=== PATIENT | female | born 1985 | race Caucasian/White ===

== ENCOUNTER 2017-07-12 22:37 | Emergency (ER) | payer SELFPAY | END 2017-07-12 22:57 | disposition home or self-care (01) | LOC: ERS 22:37 | DX: K08.89 Other specified disorders of teeth and supporting structures (principal); F41.9 Anxiety disorder, unspecified; F32.9 Major depressive disorder, single episode, unspecified | CPT/HCPCS: 99283 ==

== ENCOUNTER 2017-07-13 17:10 | Emergency (ER) | payer SELFPAY ==
[2017-07-13] MEDS ORDERED: Acetaminophen/Codeine 30-300mg Tablet ONE (17:42)
== END 2017-07-13 18:39 | disposition home or self-care (01) ==
LOC: ERS 17:10
DX: K08.89 Other specified disorders of teeth and supporting structures (principal); I10 Essential (primary) hypertension; F41.9 Anxiety disorder, unspecified; Z87.891 Personal history of nicotine dependence; Z79.899 Other long term (current) drug therapy
CPT/HCPCS: 99283

== ENCOUNTER 2018-02-15 19:23 | Emergency (ER) | payer SELFPAY ==
[2018-02-15] MEDS ORDERED: Ketorolac Tromethamine 30 MG/ML VIAL ONE (19:54)
[2018-02-15] MEDS ORDERED: diphenhydrAMINE 50 MG/ML VIAL ONE (19:54)
[2018-02-15] MEDS ORDERED: Metoclopramide HCl 10 MG/2 ML VIAL ONE (19:54)
[2018-02-15] MEDS ORDERED: Oxymetazoline HCl 0.05% ( 15 ML ) ONE (20:45)
== END 2018-02-15 20:55 | disposition home or self-care (01) ==
LOC: ERS 19:23
DX: J32.9 Chronic sinusitis, unspecified (principal); F41.9 Anxiety disorder, unspecified; F32.9 Major depressive disorder, single episode, unspecified; Z87.891 Personal history of nicotine dependence
CPT/HCPCS: 96365; 96375; J1200; J1885; J2765

== ENCOUNTER 2018-05-26 19:27 | Emergency (ER) | payer SELFPAY ==
[2018-05-26] MEDS ORDERED: Ketorolac Tromethamine 60 MG/2 ML VIAL ONE (20:40)
--- NOTE | 2018-05-26 20:40 | RAD ---
FXR Clavicle Lt 2 V STANDARD: 05/26/2018 8:17 PM CLINICAL INDICATION: Pain COMPARISON: None. FINDINGS: Fracture:No fracture. Arthropathy:None of significance. Incidental findings:None of significance. IMPRESSION: 1. No acute osseous abnormality.
--- NOTE | 2018-05-26 20:43 | RAD ---
FXR Shoulder Lt 3 View STANDARD: 05/26/2018 8:17 PM CLINICAL INDICATION: Pain COMPARISON: None. FINDINGS: Fracture:No fracture. Arthropathy:None of significance. Incidental findings:None of significance. IMPRESSION: 1. No acute osseous abnormality.
== END 2018-05-26 22:28 | disposition home or self-care (01) ==
LOC: ERS 19:27
DX: M25.512 Pain in left shoulder (principal); F41.9 Anxiety disorder, unspecified; Z87.891 Personal history of nicotine dependence
CPT/HCPCS: 96372; J1885

== ENCOUNTER 2018-06-04 07:31 | Outpatient (CLI) | payer OTHER ==
--- NOTE | 2018-06-04 09:23 | RAD ---
Left shoulderarthrogram, under fluoroscopic guidance CLINICAL HISTORY: Chronic left shoulder pain. Recent fall. PROCEDURE: Informed consent was obtained from the patient. Graduate Engineer imaging was performed. The patient's left shoulderwas prepped and draped in a standard sterile fashion. Using fluoroscopic guidance, the left shoulderwas localized. Topical anesthesia with buffered 1% lidocaine was performed. Subsequently , uneventful access into theleft shoulder jointwas performed with a 22-gauge needle, which was confirmed with a small volume of radiopaque contrast. An 7 cc contrast cocktail containing gadolinium , radiopaque contrast, saline, lidocaine and epinephrine was instilled into the left hip joint. Fluoroscopic imaging was acquired and was stored for documentation. The needle was removed. There wer e no procedural complications. Patient tolerated the procedure well. Patient was transferred to MRI Department to undergo MRI arthrogram. Reference separate report for fu rther details. IMPRESSION: Technically successfulleft shoulderarthrogram, under fluoroscopic guidance.
--- NOTE | 2018-06-04 11:10 | MRI ---
MR ARTHROGRAM LEFT SHOULDER: Provided Clinical History: Left shoulder pain. FINDINGS: The components of the rotator cuff appear intact. The long head biceps tendon appears intact and is n ormally located. The glenoid labrum and glenohumeral articular cartilage appear normal. No significant subacromial subdeltoid bursal fluid. No focal concerning regional marrow or muscular signal abnormality apparent. IMPRESSION: No evidence for rotator cuff or glenoid labral tear. POS: TPC
== END 2018-06-04 07:32 | disposition home or self-care (01) ==
LOC: RAD 07:31
PROVIDERS: ATTEND Orthopaedic Surgery
DX: M25.512 Pain in left shoulder (principal)
CPT/HCPCS: 23350

== ENCOUNTER 2018-09-28 13:49 | Emergency (ER) | payer BC ==
[2018-09-28 14:39] LABS: #Basophils 0.1 thou/uL (0.0-0.2); #Eosinphils 0.2 thou/uL (0.0-0.7); #Lymphocytes 2.7 thou/uL (1.20-3.40); #Monocytes 0.5 thou/uL (0.11-0.59); #Neutrophils 7.8 thou/uL (1.40-6.50); %Basophils 0.5 % (0.0-1.0); %Eosinophils 1.5 % (0.0-10.0); %Lymphocytes 24.2 % (21.0-51.0); %Monocytes 4.8 % (0.0-10.0); Hemoglobin 13.4 g/dL (12.0-16.0); Mean Corpuscular HGB CONC 33.6 g/dL (32.0-36.0); Mean Corpuscular Hemoglobin 30.5 pg (27.0-31.0); Mean Corpuscular Volume 90.7 fL (78.0-98.0); Platelet Count 305 thou/uL (130-400); RBC Distribution Width 12.7 % (11.5-14.5); White Blood Cell (WBC) Count 11.3 thou/uL (4.8-10.8)
[2018-09-28 15:16] LABS: ALT (SGPT) 23 U/L (8-55); AST (SGOT) 16 U/L (5-34); Albumin 3.8 g/dL (3.5-5.0); Alkaline Phosphatase 72 U/L (40-150); Anion Gap 13 mmol/L (10-20); BUN (Urea Nitrogen) 9 mg/dL (7.0-18.7); Bilirubin, Total 0.4 mg/dL (0.2-1.2); Calc. Creatinine Clearance 0 mL/min (70-130); Calcium 8.9 mg/dL (7.8-10.44); Carbon Dioxide 24 mmol/L (22-29); Chloride 103 mmol/L (98-107); Estimated GFR-MDRD Greater than 90; Glucose 109 mg/dL (70-105); Potassium 4.1 mmol/L (3.5-5.1); Protein, Total 6.8 g/dL (6.0-8.3); Sodium 136 mmol/L (136-145)
--- NOTE | 2018-09-28 15:19 | ULT ---
EXAM: Pelvic ultrasound HISTORY: Vaginal spotting for 4 weeks COMPARISON: None TECHNIQUE: Multiple grayscale and color Doppler images were obtained in a transabdominal and transvag inal pelvic ultrasound. Spectral analysis of the Doppler waveforms of the ovaries were performed. FINDINGS: UTERUS: There is an intrauterine gestational sac. This contains a yolk sac and pole. [place]-rump length: 0.65 cm which estimates gestational age at 6 weeks 3 days. A heart rate is detected at 120 bpm. A small hypoechoic region adjacent to the gestational sac which could represent a small subchorionic hemorrhage. No free fluid is seen in the pelvis. RIGHT OVARY: Normal flow without focal mass. LEFT OVARY: Normal flow without focal mass. IMPRESSION: 1. Single live intrauterine with estimated age of 6 weeks 3 days. 2. Possible small area of subchorionic hemorrhage
[2018-09-28 16:02] LABS: Bilirubin Small (Negative); Blood, Urine Large (Negative); Glucose, Urine (Dipstick) Negative (Negative); Leukocyte Small (Negative); Nitrite Negative (Negative); Protein, Urine (Dipstick) 30 mg/dL (Neg-Trace); Urobilinogen 0.2 mg/dL (Less than 2)
[2018-09-28 16:05] LABS: Clarity Cloudy (Clear)
[2018-09-28 16:14] LABS: RBC/HPF Greater than 50 HPF (0-3)
[2018-09-28 16:15] LABS: Bacteria/HPF 1+ HPF (None Seen)
== END 2018-09-28 17:19 | disposition home or self-care (01) ==
LOC: ERS 13:49
DX: O20.0 Threatened abortion (principal); O99.341 Other mental disorders complicating pregnancy, first trimester; F41.9 Anxiety disorder, unspecified; Z3A.01 Less than 8 weeks gestation of pregnancy
CPT/HCPCS: 36415; 76856; 80053; 81003; 81015; 84702; 85025; 86850; 86900; 86901; 87086

== ENCOUNTER 2018-10-08 13:08 | Emergency (ER) | payer BC, OTHER ==
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
== END 2018-10-08 14:10 | disposition home or self-care (01) ==
LOC: ERS 13:08
DX: O9A.211 Injury, poisoning and certain other consequences of external causes complicating pregnancy, first trimester (principal); S51.811A Laceration without foreign body of right forearm, initial encounter; S30.1XXA Contusion of abdominal wall, initial encounter; O99.341 Other mental disorders complicating pregnancy, first trimester; F41.9 Anxiety disorder, unspecified; Z3A.09 9 weeks gestation of pregnancy; Y04.8XXA Assault by other bodily force, initial encounter
CPT/HCPCS: 76856

== ENCOUNTER 2018-11-28 09:26 | Observation (INO) | payer MEDICAID, OTHER ==
[2018-11-28 10:18] LABS: #Lymphocytes 1.7 thou/uL (1.20-3.40); #Monocytes 0.4 thou/uL (0.11-0.59); #Neutrophils 11.1 thou/uL (1.40-6.50); %Basophils 0.2 % (0.0-1.0); %Eosinophils 0.2 % (0.0-10.0); %Lymphocytes 12.8 % (21.0-51.0); %Monocytes 3.2 % (0.0-10.0); %Neutrophils 83.6 % (42.0-75.0); Hemoglobin 13.1 g/dL (12.0-16.0); Mean Corpuscular HGB CONC 34.4 g/dL (32.0-36.0); Mean Corpuscular Volume 87.2 fL (78.0-98.0); Mean Platelet Volume 7.9 fL (7.4-10.4); Platelet Count 269 thou/uL (130-400); RBC Distribution Width 12.6 % (11.5-14.5); Red Blood Cell (RBC) Count 4.36 mill/uL (4.20-5.40); White Blood Cell (WBC) Count 13.2 thou/uL (4.8-10.8)
[2018-11-28 10:26] LABS: Bacteria/HPF 2+ HPF (None Seen); Bilirubin Negative (Negative); Blood, Urine Negative (Negative); Clarity Turbid (Clear); Glucose, Urine (Dipstick) Normal (Negative); Leukocyte 500 Leu/uL (Negative); Nitrite Negative (Negative); Protein, Urine (Dipstick) 70 mg/dL (Neg-Trace); Squamous Epithelial 21-50 HPF (0-3); WBC/HPF 21-50 HPF (0-3)
[2018-11-28 10:33] LABS: ALT (SGPT) 78 U/L (8-55); AST (SGOT) 38 U/L (5-34); Albumin 3.6 g/dL (3.5-5.0); Alkaline Phosphatase 64 U/L (40-110); Anion Gap 12 mmol/L (10-20); BUN (Urea Nitrogen) 6 mg/dL (7.0-18.7); Bilirubin, Total 0.3 mg/dL (0.2-1.2); Calc. Creatinine Clearance 0 mL/min (70-130); Calcium 8.8 mg/dL (7.8-10.44); Carbon Dioxide 22 mmol/L (22-29); Chloride 104 mmol/L (98-107); Estimated GFR-MDRD Greater than 90; Globulin 3.3 g/dL (2.4-3.5); Glucose 103 mg/dL (70-105); Potassium 3.6 mmol/L (3.5-5.1); Protein, Total 6.9 g/dL (6.0-8.3); Sodium 134 mmol/L (136-145)
[2018-11-28] MEDS ORDERED: cefTRIAXone\\ROCEPHIN 1 GM VIAL ONE (10:43)
[2018-11-28] MEDS ORDERED: Acetaminophen 500 MG TAB ONE (13:28)
[2018-11-28] MEDS ORDERED: Ondansetron PF 4 MG/2 ML Vial ONE (15:08)
--- NOTE | 2018-11-28 15:35 | HP ---
TIME OF SERVICE: 1500 hours. REASON FOR ADMISSION: Nausea, vomiting, dehydration, possible gastroenteritis, and possible urinary tract infection at 15 weeks' gestation. HISTORY OF PRESENT ILLNESS: Ms. Rooney is a 33-year-old, 3, para [address], who sees Dr. Collins at [facility]. Antepartum records not available on the ED unit. The patient reports a day of nausea and vomiting with two near syncopal episodes at home. She also reports some diarrhea. She reports passage of a blood clot vaginally this morning and was seen at the office at [facility]. By report of evaluation there, it was negative for labor, cervical dilatation, subchorionic hemorrhage, or other abnormality. She was sent over here for dehydration. She continues to feel somewhat puny after 2 L of IV fluids. NUMERICAL CONTROL OPERATOR HISTORY: x3. Antepartum labs not available on the unit. PAST MEDICAL HISTORY: Denies PAST SURGICAL HISTORY: Denies. ALLERGIES: DENIES. MEDICATIONS: vitamins. SOCIAL HISTORY: Denies tobacco, alcohol, or IV drug use. FAMILY HISTORY: Noncontributory. REVIEW OF SYSTEMS: Noncontributory. PHYSICAL EXAMINATION: GENERAL: White female. Resting comfortably. VITAL SIGNS: Pulse 95, respirations are 18, temperature 98.8, and blood pressure 118/72. HEENT: Within normal limits. LUNGS: Clear to auscultation bilaterally. HEART: Regular rhythm. ABDOMEN: Soft and nontender without guarding, but some discomfort to exam, especially in the mid upper quadrants. EXTERNAL GENITALIA: Vaginal exam deferred. EXTREMITIES: No clubbing, cyanosis, or edema. LABORATORY DATA: The patient has a white count of 13.2 with 83% neutrophils, hematocrit 38%, and platelets are within normal limits. Basic comprehensive metabolic panel, slightly elevated ALT and AST at less than two times normal at 38 and 78. Creatinine is within normal limits. Urinalysis on a non clean-catch specimen was turbid with 70+ protein, greater than 150 ketones, 4 to 6 RBCs, 21 to 50 WBCs, 21 to 50 squamous cells, and 2+ bacteria, and 500+ leukocyte esterase. IMPRESSION: Dehydration, 15 weeks' gestation, possible gastroenteritis, and possible urinary tract infection. PLAN: Admission to observation status. Continue IV hydration with Zofran as needed. We will repeat urinalysis with a straight cath specimen and obtain urine culture from the same specimen. If continues to be positive for signs of urinary tract infection, we will treat with antibiotics. Job ID: [id number]
[2018-11-28] MEDS ORDERED: Loperamide HCl 2 MG CAP PO PRN (16:20)
[2018-11-28] MEDS ORDERED: Ondansetron PF 4 MG/2 ML Vial IVP PRN (16:20)
[2018-11-28] MEDS: Lactated Ringer's 1,000 ML IV SCH (16:40)
[2018-11-28 17:09] VITALS: BMI 42.9
[2018-11-28 17:20] LABS: Bilirubin Negative (Negative); Blood, Urine Negative (Negative); Clarity Clear (Clear); Glucose, Urine (Dipstick) Normal (Negative); Leukocyte Negative Leu/uL (Negative); Nitrite Negative (Negative); Protein, Urine (Dipstick) 30 mg/dL (Neg-Trace)
[2018-11-28 17:27] LABS: Bacteria/HPF 1+ HPF (None Seen); RBC/HPF None Seen HPF (0-3); Squamous Epithelial 0-3 HPF (0-3); WBC/HPF None Seen HPF (0-3)
[2018-11-28] MEDS ORDERED: Doxylamine 25 MG TAB PO SCH (21:30)
[2018-11-28] MEDS ORDERED: Sodium Chloride 0.9% 10 ML ONE (21:43)
[2018-11-28] MEDS: Acetaminophen 325 MG TAB PO PRN (21:54)
[2018-11-28] MEDS: Famotidine 20 MG TAB PO SCH (21:54)
[2018-11-29] MEDS: Lactated Ringer's 1,000 ML IV SCH ×2 (01:10→09:02)
[2018-11-29] MEDS: Acetaminophen 325 MG TAB PO PRN ×2 (05:15→09:06)
[2018-11-29 06:01] VITALS: TEMP 98
--- NOTE | 2018-11-29 07:49 | DIS ---
DATE OF ADMISSION: 11/28/2018 DATE OF DISCHARGE: 11/29/2018 TIME OF DISCHARGE: 0710 hours. SUMMARY OF HOSPITAL COURSE: Ms. Rooney is 15 weeks with suspected gastroenteritis versus late onset hyperemesis with nausea, vomiting, and diarrhea. She was admitted for IV fluids, rehydration, and antiemetics. She has tolerated p.o. clear liquids well and had a small episode of nausea this morning. It was well controlled with Zofran. PHYSICAL EXAMINATION: VITAL SIGNS: Temperature 98.0, pulse 82, respirations 18, and blood pressure 102/66. HEENT: Within normal limits. LUNGS: Clear to auscultation bilaterally. HEART: Regular rhythm. ABDOMEN: Soft and nontender. No rebound or guarding. EXTREMITIES: No clubbing, cyanosis, or edema. LABORATORY DATA: Repeat urinalysis with straight cath resulted results not consistent with urinary tract infection. IMPRESSION: Resolving gastroenteritis at 15 weeks' gestation. PLAN: Discharge home. Prescription for Zofran sent to the patient's Pharmacy, [facility] and the patient will keep scheduled followup with Dr. Collins. Job ID: [id number]
[2018-11-29 08:02] VITALS: BP 128/61
[2018-11-29] MEDS ORDERED: FLU VACC QS2019-20(6MOS UP)/PF 60 MCG/0.5 ML SYRINGE IM ONE (09:00)
[2018-11-29] MEDS: Famotidine 20 MG TAB PO SCH (09:06)
[2018-11-29] MEDS ORDERED: Doxylamine 25 MG TAB PO SCH (21:00)
== END 2018-11-29 09:20 | disposition home or self-care (01) ==
LOC: L&D/OP 09:26 → ERS 09:26 → EDSTATUS 09:35 → 3SW 15:03
PROVIDERS: ADMIT Obstetrics & Gynecology; ATTEND Obstetrics & Gynecology
DX: O99.612 Diseases of the digestive system complicating pregnancy, second trimester (principal); K52.9 Noninfective gastroenteritis and colitis, unspecified; O99.282 Endocrine, nutritional and metabolic diseases complicating pregnancy, second trimester; E86.0 Dehydration; Z3A.15 15 weeks gestation of pregnancy; Z88.2 Allergy status to sulfonamides
CPT/HCPCS: 80053; 81003; 81015; 83880; 84484; 85025; 87086; 90471; 90686; 93005; 96361; 96365; 96375; 96376; G0008; G0378; J0696; J2405

== ENCOUNTER 2019-04-22 02:22 | Inpatient (IN) | payer OTHER ==
[2019-04-22] MEDS ORDERED: Ondansetron PF 4 MG/2 ML Vial IVP PRN ×2 (03:05→05:09)
[2019-04-22] MEDS ORDERED: Promethazine HCl 25 MG/ML VIAL IM PRN ×2 (03:05→05:09)
[2019-04-22] MEDS ORDERED: Butorphanol Tartrate 1 MG/ML VIAL SLOW IVP PRN (03:05)
[2019-04-22] MEDS ORDERED: hydrALAZINE 20 MG/ML VIAL SLOW IVP PRN ×2 (03:05→08:38)
--- NOTE | 2019-04-22 03:08 | PDOC.EVN ---
Event Note - Event Note Event Note: Requested Bedside sono: I confirm footling breech by targeted sono EGA 36 weeks Plan for primary CS Dr Collins aware
[2019-04-22] MEDS: Lactated Ringer's 1,000 ML IV SCH ×2 (03:10→15:30)
[2019-04-22 03:15] VITALS: BMI 42.4
[2019-04-22] MEDS ORDERED: Azithromycin 500 MG in Sodium Chloride 0.9% 250 ML 250 ML IVPB SCH (03:15)
[2019-04-22] MEDS ORDERED: CEFAZOLIN 2 GM in Premix Bag 1 BAG IVPB SCH (03:15)
[2019-04-22] MEDS ORDERED: Bicitra 30 ML UDCUP PO SCH (03:15)
[2019-04-22 03:26] LABS: Hemoglobin 12.3 g/dL (12.0-16.0); Mean Corpuscular HGB CONC 34.4 g/dL (32.0-36.0); Mean Corpuscular Volume 89.9 fL (78.0-98.0); Platelet Count 228 thou/uL (130-400); RBC Distribution Width 13.9 % (11.5-14.5); Red Blood Cell (RBC) Count 3.96 mill/uL (4.20-5.40); White Blood Cell (WBC) Count 13.2 thou/uL (4.8-10.8)
[2019-04-22] MEDS ORDERED: Fentanyl 100 MCG/2 ML VIAL ONE (03:53)
[2019-04-22] MEDS ORDERED: MORPHINE 5 MG/10 ML PF VIAL ONE (03:54)
[2019-04-22] MEDS ORDERED: Dexamethasone 4 mg/ml Vial ONE (03:55)
[2019-04-22] MEDS ORDERED: PHENYLEPHRINE-NS 100 MCG/ML 10 ML SYRINGE ONE (03:55)
[2019-04-22] MEDS ORDERED: Ketorolac Tromethamine 30 MG/ML VIAL ONE (03:55)
[2019-04-22] MEDS ORDERED: Oxytocin 10 UNITS/ML VIAL ONE (03:55)
[2019-04-22] MEDS ORDERED: EPHEDRINE 25 MG/5 ML SYRINGE ONE (03:55)
[2019-04-22] MEDS ORDERED: Ondansetron PF 4 MG/2 ML Vial ONE (03:55)
[2019-04-22 04:07] LABS: HBSAg Index 0.18 S/CO (0-0.99); HIV (1/2) Antibody/Antigen Non-Reactive (NonReactive); HIV 1/2 INDEX 0.14 S/CO (<1.00); Hep B Surf Ag Non-Reactive S/CO (NonReactive)
[2019-04-22] MEDS ORDERED: Lidocaine 1% PF 5 ML VIAL ONE (04:09)
[2019-04-22 04:23] LABS: Syphilis Antibody Nonreactive (Nonreactive); Syphilis Antibody Index 0.03 S/CO (<1.00 Non-Reactive)
[2019-04-22] MEDS ORDERED: Promethazine HCl 25 MG/ML VIAL ONE (04:48)
[2019-04-22 05:01] LABS: Actual Bicarbonate (HCO3v) 24 mEq/L (22-28); pH (Cord, venous) 7.35 (7.32-7.43)
--- NOTE | 2019-04-22 05:03 | PRG ---
DATE OF SERVICE: 04/22/2019 Please label this for surgical sales representative note. In brief, I scrubbed in and helped Dr. Karla Collins to perform a primary low transverse without incident. Indication was 36 to 37 weeks gestation, footling breech presentation with spontaneous rupture of membranes in latent labor. PROCEDURE PERFORMED: Primary low transverse section via Pfannenstiel skin incision. COMPLICATIONS: None. Please see the full dictation by Dr. Collins. Again, principal surgeon was Karla Collins. medical assistant secretary was myself, Bjorn Bhandari, scrubbed in from skin incision to skin closure. Job ID: [id number]
[2019-04-22 05:04] LABS: Actual Bicarbonate (HCO3a) 25.6 mEq/L (22-28); Base Excess (BEa) -1.9 mEq/L (-2.0 to +3.0)
[2019-04-22] MEDS ORDERED: Promethazine HCl 25 MG SUPP PR PRN (05:09)
[2019-04-22] MEDS ORDERED: L&D-Morphine 4 MG/ML VIAL SLOW IVP PRN (05:09)
[2019-04-22] MEDS ORDERED: HYDROmorphone 2 MG/ML VIAL SLOW IVP PRN (05:09)
[2019-04-22] MEDS ORDERED: Meperidine HCl/PF 25 MG/ML VIAL SLOW IVP PRN (05:09)
[2019-04-22] MEDS ORDERED: Ketorolac Tromethamine 30 MG/ML VIAL IVP PRN (05:09)
[2019-04-22] MEDS ORDERED: Naloxone HCl 0.4 mg/ml Vial IVP PRN ×2 (05:09)
[2019-04-22] MEDS ORDERED: Naloxone HCl 0.4 mg/ml Vial IV PRN (05:09)
[2019-04-22] MEDS ORDERED: Ondansetron HCl/PF 4 MG/2 ML Vial IVP PRN (05:09)
[2019-04-22] MEDS ORDERED: diphenhydrAMINE 50 MG/ML VIAL IVP PRN (05:09)
[2019-04-22] MEDS ORDERED: Communication Order-Pharmacy FS SCH (05:15)
--- NOTE | 2019-04-22 05:47 | OP ---
DATE OF PROCEDURE: 04/22/2019 PREOPERATIVE DIAGNOSES: 1. A 33-year-old white female, G4, P2, A1 at 36 weeks. 2. Spontaneous rupture of membranes. 3. Footling breech. 4. Unexplained elevated AFP. POSTOPERATIVE DIAGNOSES: 1. A 33-year-old white female, G4, P2, A1 at 36 weeks. 2. Spontaneous rupture of membranes. 3. Footling breech. 4. Unexplained elevated AFP. PROCEDURE PERFORMED: Primary low transverse section. INTERNATIONAL MARKETING INTERN SURGEON: Bjorn Bhandari MD ANESTHESIA: Spinal block. ESTIMATED BLOOD LOSS: 250 mL. COMPLICATIONS: None. COUNTS: Correct x2. ANTIBIOTICS: Ancef 2 g and Zithromax per protocol. FINDINGS: 1. Male , double footling breech presentation, Apgars 8 and 9. weight 2129 g or 4 pounds 11 ounces. Clear amniotic fluid noted. 2. Normal-appearing fallopian tubes, uterus, and ovaries. 3. Placenta appeared small for gestational age and has been sent for pathology. DISPOSITION: To recovery room, stable. DESCRIPTION OF PROCEDURE: The patient previously received informed consent in regard to surgery. She was taken back to the operating room, where she received a spinal anesthetic agent without complications. She was placed in supine position, prepped and draped in usual sterile fashion. A Pfannenstiel incision was made in the lower abdomen, and it was carried down to the fascia. Fascia was nicked in midline. Fascial incision was extended bilaterally using curved Maynard scissors. The rectus fascia was then dissected off superiorly and inferiorly off the rectus muscle bellies. The peritoneum was then entered, and the peritoneal incision was extended. Extra large Cuco O retractor was placed. Vesicouterine peritoneal bladder flap was created in usual fashion. A 2 cm hysterotomy incision in the lower uterine segment was made, and this was extended via finger fractionation. The baby was then delivered in the footling breech presentation by bringing the feet through the hysterotomy incision and then the buttocks. A moistened lap had been placed around the lower trunk and with the corkscrewing technique, this allowed for easy delivery of each arm and with my assistants keeping the head flexed externally, the head delivered easily. The mouth and nares of the were bulb suctioned on the abdomen. The cord was doubly clamped and cut, and handed to the pediatric team in attendance. Usual cord blood and cord gas were obtained. Placenta was then manually extracted and sent to Pathology. Uterus was externalized and curetted of any remaining placental fragments with dry laparotomy sponge. Uterus was returned back into the abdomen. The hysterotomy incision was then closed in a running locking fashion with #1 Monocryl. Good hemostasis was confirmed. Pelvis was irrigated and suctioned. Again, hemostasis was confirmed. Cuco O retractor had been removed. The rectus muscle bellies were then inspected and noted to be hemostatic prior to fascial closure. The fascia was closed with 0 PDS suture x2 in running continuous fashion. The subcutaneous tissue was irrigated and then noted to be hemostatic and was approximated with interrupted 2-0 plain gut sutures. Skin was closed with john. There were no surgical or anesthetic complications. Job ID: [id number]
[2019-04-22] MEDS ORDERED: Meperidine HCl/PF 25 MG/ML VIAL ONE (07:30)
[2019-04-22] MEDS ORDERED: Labetalol HCl 100 MG/20 ML VIAL ONE ×3 (08:28→08:46)
[2019-04-22] MEDS ORDERED: Adacel (T-DAP) 0.5 ML SYRINGE IM ONE (08:38)
[2019-04-22] MEDS ORDERED: NIFEdipine XL 30 MG TAB PO SCH (09:00)
[2019-04-22] MEDS: Ibuprofen 800 MG TAB PO SCH ×2 (14:23→22:10)
[2019-04-22] MEDS: HYDROcodone/Acetaminophen 5/325 mg Tablet PO PRN ×2 (16:37→22:36)
[2019-04-23] MEDS: HYDROcodone/Acetaminophen 5/325 mg Tablet PO PRN ×5 (02:59→20:30)
[2019-04-23] MEDS: Ibuprofen 800 MG TAB PO SCH ×3 (05:36→21:56)
[2019-04-23 06:48] LABS: Mean Corpuscular HGB CONC 33.3 g/dL (32.0-36.0); Mean Corpuscular Hemoglobin 30.4 pg (27.0-31.0); Mean Corpuscular Volume 91.3 fL (78.0-98.0); Mean Platelet Volume 9.5 fL (7.4-10.4); Platelet Count 194 thou/uL (130-400); Red Blood Cell (RBC) Count 3.62 mill/uL (4.20-5.40); White Blood Cell (WBC) Count 12.2 thou/uL (4.8-10.8)
--- NOTE | 2019-04-23 07:55 | PDOC.PP ---
Post Progress Note Post Day #: 1 PO intake tolerated: yes Flatus: yes Ambulation: yes Vital Signs (12 hours) Temp Pulse Resp BP 04/23/19 04:25 98.0 F 89 17 134/68 04/23/19 00:20 97.9 F 94 18 136/76 Weight Weight 271 lb Result Diagrams: 04/23/19 06:20 Additional Labs: Post Labs Blood Type A POSITIVE 04/22/19 03:14 Hep Bs Antigen Non-Reactive S/CO (NonReactive) 04/22/19 03:14 - Assessment/Plan post day 1 doing well.. Routine post op care.
[2019-04-23] MEDS: Simethicone Chewable 80 MG TAB PO PRN ×2 (14:01→20:30)
[2019-04-23] MEDS: Docusate Calcium (SURFAK) 240 MG CAP PO SCH (21:57)
[2019-04-24] MEDS: HYDROcodone/Acetaminophen 5/325 mg Tablet PO PRN ×5 (01:08→21:00)
[2019-04-24] MEDS: Ibuprofen 800 MG TAB PO SCH ×3 (05:51→21:00)
[2019-04-24] MEDS: Simethicone Chewable 80 MG TAB PO PRN (05:51)
[2019-04-24] MEDS: Docusate Calcium (SURFAK) 240 MG CAP PO SCH ×2 (08:39→21:00)
[2019-04-24] MEDS: Prenatal Vitamin 1 TAB PO SCH (08:40)
[2019-04-25] MEDS: HYDROcodone/Acetaminophen 5/325 mg Tablet PO PRN ×5 (01:38→23:39)
[2019-04-25] MEDS: Ibuprofen 800 MG TAB PO SCH ×3 (06:06→21:49)
--- NOTE | 2019-04-25 08:19 | PDOC.PP ---
Post Progress Note Post Day #: 3 PO intake tolerated: yes Flatus: yes Ambulation: yes Vital Signs (12 hours) Temp Pulse Resp BP Pulse Ox 04/25/19 04:25 98.2 F 89 18 146/72 H 04/24/19 23:15 98.1 F 85 18 145/83 H 04/24/19 20:24 97.8 F 80 18 134/86 98 Weight Weight 271 lb Result Diagrams: 04/23/19 06:20 Additional Labs: Post Labs Blood Type A POSITIVE 04/22/19 03:14 Hep Bs Antigen Non-Reactive S/CO (NonReactive) 04/22/19 03:14 - Assessment/Plan Post op day 3 from primary c/breech/36 weeks. Mild elevated blood pressures. No severe readings. Will d/c home today id baby discharged. john out pod 7 and blood pressure check then.
[2019-04-25] MEDS: Prenatal Vitamin 1 TAB PO SCH (08:24)
[2019-04-25] MEDS: Docusate Calcium (SURFAK) 240 MG CAP PO SCH ×2 (08:24→21:48)
[2019-04-25] MEDS: cloNIDine 0.1 MG TAB PO PRN ×2 (09:09→23:39)
[2019-04-25] MEDS: NIFEdipine XL 30 MG TAB PO SCH (09:11)
[2019-04-25] MEDS ORDERED: Sodium Chloride 0.9% 10 ML ONE (09:53)
[2019-04-26] MEDS: Lanolin Ointment 7 GM TUBE TOP PRN (01:06)
[2019-04-26] MEDS: HYDROcodone/Acetaminophen 5/325 mg Tablet PO PRN ×4 (04:01→20:49)
--- NOTE | 2019-04-26 04:13 | PDOC.PP ---
Post Progress Note Post Day #: 4 Subjective: Continues to need norco for pain. SBP >160 overnight after start of Procardia. Baby in NICU. PO intake tolerated: yes Flatus: yes Ambulation: yes Vital Signs (12 hours) Temp Pulse Resp BP BP Pulse Ox 04/26/19 01:07 82 18 126/65 04/25/19 23:39 161/84 H 04/25/19 23:35 97.8 F 91 20 161/84 H 100 04/25/19 19:39 97.5 F L 91 17 132/75 96 04/25/19 17:35 97.8 F 88 14 132/74 95 Weight Weight 122.924 kg - Physical Examination General: NAD Respiratory: non-labored breathing Skin: CS incision dry & intact Neurological: no gross focal deficits Psychiatric: A&Ox3, normal affect Result Diagrams: 04/22/ 06:20 Additional Labs: Post Labs Blood Type A POSITIVE 04/22/19 03:14 Hep Bs Antigen Non-Reactive S/CO (NonReactive) 04/22/19 03:14 - Assessment/Plan POD #4 from pLTCS due to footling breech - Meeting PP milestones, continue routine care - Started on Procardia 30mg 3/6 for BPs >160/100 and Clonidine 0.1mg PRN. If continues to have elevated pressures will increase to 60mg daily. - F/u on POD #7 for staple removal and BP check Jeannette De La O MD PGY-2 Pt seen and evaluated by Attending Dr Bjorn Bhandari
[2019-04-26] MEDS: Ibuprofen 800 MG TAB PO SCH ×3 (06:02→22:13)
--- NOTE | 2019-04-26 07:17 | PDOC.EVN ---
Event Note - Event Note Event Note: OBGYN POD5 Patient seen in NICU with Dr De La O Baby in NICU for hypothermia (per Dr Collins)...baby doing well. Mother's BP was 161 systolic last pm. She is on procardia 30mg XL QD. Her RN discussed with me that she still is using 2 narcos at a time. I have reviewed her BPs with the patient. Our plan is to watch today (POD4) since procardia just started yesterday. She is unsure if she has had high BP prior to or not. WE will follow BPs today and reduce narco today. Prob [facility] tomorrow POD5
[2019-04-26] MEDS: Prenatal Vitamin 1 TAB PO SCH (09:26)
[2019-04-26] MEDS: Docusate Calcium (SURFAK) 240 MG CAP PO SCH ×2 (09:26→22:13)
[2019-04-26] MEDS: NIFEdipine XL 30 MG TAB PO SCH (09:26)
[2019-04-27] MEDS: HYDROcodone/Acetaminophen 5/325 mg Tablet PO PRN ×4 (01:11→20:07)
[2019-04-27] MEDS: Lanolin Ointment 7 GM TUBE TOP PRN (01:12)
[2019-04-27] MEDS: Ibuprofen 800 MG TAB PO SCH ×3 (05:58→23:08)
[2019-04-27] MEDS: cloNIDine 0.1 MG TAB PO PRN (06:05)
--- NOTE | 2019-04-27 07:19 | PRG ---
DATE OF SERVICE: 04/27/2019 TIME OF SERVICE: 0705 hours. SUBJECTIVE: Ms. Rooney is 33-year-old postoperative day 4 to 5 with hypertension, obesity, and delivery. The patient occasionally continues to have blood pressures to 165/94. She is on Procardia XL 30 daily with clonidine p.r.n. OBJECTIVE: VITAL SIGNS: Temperature 97.9, pulse 78, blood pressure 136/86, respirations 14. HEENT: Within normal limits. CHEST: Clear to auscultation bilaterally. HEART: Regular rate and rhythm. ABDOMEN: Soft, nontender. Incision is healing well. EXTREMITIES: No clubbing, cyanosis, or edema. LABORATORY DATA: Hematocrit is 33%, status post . IMPRESSION: Persistent hypertension, post delivery. PLAN: Increase Procardia to 60 daily and observe for another day. Probable discharge on 04/27. Job ID: [id number]
[2019-04-27] MEDS: Prenatal Vitamin 1 TAB PO SCH (09:27)
[2019-04-27] MEDS: NIFEdipine XL 60 MG TAB PO SCH (09:27)
[2019-04-27] MEDS: Docusate Calcium (SURFAK) 240 MG CAP PO SCH ×2 (09:27→23:08)
[2019-04-28] MEDS: HYDROcodone/Acetaminophen 5/325 mg Tablet PO PRN ×2 (02:07→06:22)
[2019-04-28] MEDS: Ibuprofen 800 MG TAB PO SCH ×2 (05:31→13:01)
--- NOTE | 2019-04-28 07:32 | PDOC.PP ---
Post Progress Note Post Day #: 5-6 PO intake tolerated: yes Flatus: yes Ambulation: yes Vital Signs (12 hours) Temp Pulse Resp BP Pulse Ox 04/28/19 05:32 98.1 F 98 12 139/92 H 04/27/19 22:57 154/96 H 04/27/19 19:59 98.1 F 103 H 16 146/94 H 97 Weight Weight 271 lb Result Diagrams: 04/23/19 06:20 Additional Labs: Post Labs Blood Type A POSITIVE 04/22/19 03:14 Hep Bs Antigen Non-Reactive S/CO (NonReactive) 04/22/19 03:14 - Assessment/Plan Blood pressures improved on 60 mg procardia xl/d...134/84 this AM. No PIH symptoms. D/c today. [id number] mg xl/d.. Blood pressure check this week. Baby francisca be in nursery due to temperature regulation issues...
[2019-04-28 07:42] VITALS: TEMP 97.7
[2019-04-28] MEDS: NIFEdipine XL 60 MG TAB PO SCH (08:15)
[2019-04-28] MEDS: Prenatal Vitamin 1 TAB PO SCH ×2 (08:15→08:16)
[2019-04-28] MEDS: Docusate Calcium (SURFAK) 240 MG CAP PO SCH (08:15)
[2019-04-28 11:48] VITALS: BP 119/78
== END 2019-04-28 13:55 | disposition home or self-care (01) | DRG 788 ==
LOC: L&D/OP 02:22 → L&D 03:05 → 3SW 11:28
PROVIDERS: ADMIT Obstetrics & Gynecology; ATTEND Obstetrics & Gynecology
PROC: 10D00Z1 Extraction of Products of Conception, Low, Open Approach (ICD-10-PCS; principal; 2019-04-22)
DX: O60.14X0 Preterm labor third trimester with preterm delivery third trimester, not applicable or unspecified (principal); O32.8XX0 Maternal care for other malpresentation of fetus, not applicable or unspecified; Z3A.36 36 weeks gestation of pregnancy; Z37.0 Single live birth; O99.214 Obesity complicating childbirth; O16.5 Unspecified maternal hypertension, complicating the puerperium
CPT/HCPCS: 36415; 51702; 82805; 85027; 86780; 86850; 86900; 86901; 87340; 87389; 88307; 99285; J1100; J1885; J2001; J2175; J2274; J2405; J2550; J2590; J3010

== ENCOUNTER 2019-12-13 12:34 | Observation (INO) | payer OTHER ==
[2019-12-13 13:00] LABS: #Basophils 0.1 thou/uL (0.0-0.2); #Eosinphils 0.4 thou/uL (0.0-0.7); #Lymphocytes 3.1 thou/uL (1.20-3.40); #Monocytes 0.6 thou/uL (0.11-0.59); #Neutrophils 8.3 thou/uL (1.40-6.50); %Basophils 0.7 % (0.0-1.0); %Lymphocytes 24.9 % (21.0-51.0); %Monocytes 4.7 % (0.0-10.0); %Neutrophils 66.7 % (42.0-75.0); Hemoglobin 14.2 g/dL (12.0-16.0); Mean Corpuscular HGB CONC 33.3 g/dL (32.0-36.0); Mean Corpuscular Hemoglobin 29.5 pg (27.0-31.0); Mean Corpuscular Volume 88.7 fL (78.0-98.0); Mean Platelet Volume 8.1 fL (7.4-10.4); Platelet Count 348 thou/uL (130-400); Red Blood Cell (RBC) Count 4.82 mill/uL (4.20-5.40); White Blood Cell (WBC) Count 12.4 thou/uL (4.8-10.8)
--- NOTE | 2019-12-13 13:11 | RAD ---
XR Chest 1 View Portable History: Chest pain Comparison: None. Findings: Lungs are clear. No pneumothorax or effusion. Cardiac silhouette and mediastinal contours a re within normal limits. Impression: No acute intrathoracic abnormality.
[2019-12-13 13:20] LABS: ALT (SGPT) 109 U/L (8-55); AST (SGOT) 38 U/L (5-34); Albumin 3.9 g/dL (3.5-5.0); Alkaline Phosphatase 106 U/L (40-110); Anion Gap 14 mmol/L (10-20); BUN (Urea Nitrogen) 13 mg/dL (7.0-18.7); Bilirubin, Total 0.2 mg/dL (0.2-1.2); CK (CPK) 26 U/L (29-168); Calc. Creatinine Clearance 0 mL/min (70-130); Calcium 8.6 mg/dL (7.8-10.44); Carbon Dioxide 25 mmol/L (22-29); Chloride 104 mmol/L (98-107); Estimated GFR-MDRD 83; Globulin 2.7 g/dL (2.4-3.5); Glucose 92 mg/dL (70-105); Lipase 22 U/L (8-78); Potassium 4.5 mmol/L (3.5-5.1); Protein, Total 6.6 g/dL (6.0-8.3); Sodium 138 mmol/L (136-145)
--- NOTE | 2019-12-13 13:33 | ULT ---
Exam: Right upper quadrant ultrasound: HISTORY: Right upper quadrant abdominal pain. Lower chest pain. COMPARISON: None FINDINGS: Liver: Within normal limits Gallbladder: Shadowing echogenic foci are seen in the dependent portion of the gallbladder lumen comp atible with gallbladder calculi. There is also probable minimal amount of gallbladder sludge. No gallbladder wall thickening or pericholecystic fluid is seen. Common bile duct: The common duct is normal in caliber measuring 0.3 cm in diameter. Pancreas: Limited visualized portions of the pancreas demonstrate a normal sonographic appearance. Right kidney: Right kidney demonstrates a normal sonographic appearance. The right kidney measures 1 0.5 cm in length. IVC: The visualized IVC demonstrates a normal sonographic appearance. IMPRESSION: Cholelithiasis. Common duct is normal in caliber.
[2019-12-13] MEDS ORDERED: Ondansetron PF 4 MG/2 ML Vial ONE (13:46)
[2019-12-13] MEDS ORDERED: Morphine 4 MG/ML VIAL ONE (13:46)
[2019-12-13 13:52] LABS: Bilirubin Negative (Negative); Blood, Urine Negative (Negative); Clarity Clear (Clear); Glucose, Urine (Dipstick) Normal (Negative); Ketone, Urine Negative (Negative); Leukocyte 75 Leu/uL (Negative); Nitrite Negative (Negative); Protein, Urine (Dipstick) Negative (Neg-Trace); RBC/HPF 0-3 HPF (0-3); Specific Gravity, Urine 1.017 (1.002-1.036); Squamous Epithelial 0-3 HPF (0-3); Urobilinogen Normal mg/dL (Less than 2); pH, Urine 5.5 (5.0-9.0)
[2019-12-13 13:53] LABS: Bacteria/HPF 1+ HPF (None Seen); Pregnancy Test - Urine (BHCG) Negative (Negative); Pregu Control Background? CLEAR/WHITE (CLR/WHITE); Pregu Control Bar Appear? YES (CONTROL BAR); Specific Gravity 1.017 (1.002-1.036)
[2019-12-13] MEDS ORDERED: Piperacillin/Tazobactam 4.5 GM VIAL ONE (14:18)
[2019-12-13 18:12] VITALS: BMI 38.8
--- NOTE | 2019-12-13 18:53 | PDOC.H&P ---
- History & Physical Encounter Time: 12/13/19 Encounter Time: 18:50 Chief complaint-my abdomen hurts History of present illness-the patient is a 34-year-old female who presents to the emergency room with a 3-day history of epigastric and right upper quadrant pain. The patient has had issues with this for years, but only this time to the pain not les on its own. Pain is well localized in the right upper quadrant. Can get up to 8 out of 10. Is crampy and constant. Radiates around the right costal margin. Is associated with nausea but no vomiting. Eating seems to make it worse. Actually, over the last several months, she states that just about anything she eats causes pain. She was confusing this with reflux/heartburn type pain. No fevers or chills. No changes in her bowel movements. She is 7 months . She has 2 older children Past medical history-hypertension, depression Past surgical history- section Medications-nifedipine 60 mg by mouth every evening Dvryhjutx-wzoxt-kbji Social history-no tobacco use, very rare alcohol use Family history-mother from myocardial infarction at 46 Review of systems-negative for 10 system, to system other than HPI Vital signs-148/93, 85, 97.8 General-[no acute distress, well-nourished, obese] Head-[normocephalic, atraumatic] HEENT- [EOMI], [PERRLA] Neck-[trachea midline, supple] Lungs-[grossly clear to auscultation], [normal air movement] Heart-[regular regular], [no murmurs] Abdomen-[soft], [nondistended], tender to palpation in the right upper quadrant without a definitive Mcneal sign, [normal active bowel sounds] Musculosketal-[full range of motion], [no gross deformity] Psychiatric-[good insight, good judgment] Skin-[good turgor, no jaundice] Neuro- [GCS 15], [CN II-XII intact] Ultrasound-independently viewed the images, I also read the radiologist interpretation-gallbladder wall normal, no pericholecystic fluid. Patient has stones and sludge. Common bile duct is normal. White blood cell count is slightly elevated, transaminases are also slightly elevated but the total bilirubin is within normal limits Assessment- #1- early acute cholecystitis-patient has had 3 days of pain and a white blood cell count is slightly elevated. Her pain seems to persist which has finally brought her to the emergency room. I have discussed the risks and benefits of proceeding to the operating room for laparoscopic cholecystectomy with the patient. Risks include, but are not limited to, bleeding, infection, damage to liver, bile ducts, and or bowel. Patient understands and wishes to proceed. Hopefully, we can get the patient into the operating room tomorrow with a probable discharge tomorrow afternoon. #[id number] states that she was started on amlodipine after the delivery of her child. She states she is not on any other medications. Her blood pressure slightly elevated today. I will restart her home medication #[id number] of almost 39. This will increase her risk of cardiopulmonary issues as well as incisional hernia. Early mobilization, SCDs. Plan-n.p.o., antibiotics, pain control, surgery tomorrow. Hopeful discharge home tomorrow afternoon
[2019-12-13] MEDS ORDERED: Morphine 2 MG/ML VIAL SLOW IVP PRN (19:03)
[2019-12-13] MEDS ORDERED: Promethazine HCl 25 MG/ML VIAL IM PRN (19:03)
[2019-12-13] MEDS ORDERED: Ondansetron PF 4 MG/2 ML Vial IVP PRN (19:03)
[2019-12-13] MEDS: Lactated Ringer's 1,000 ML IV SCH (20:10)
[2019-12-13] MEDS: Piperacillin/Tazobactam 3.375 GM in Sodium Chloride 0.9% 100 ML IVPB SCH (20:10)
[2019-12-13] MEDS: Famotidine/PF 20 mg/2ml Vial SLOW IVP SCH (20:10)
[2019-12-13] MEDS: Morphine 4 MG/ML VIAL SLOW IVP PRN (20:30)
[2019-12-14] MEDS: Piperacillin/Tazobactam 3.375 GM in Sodium Chloride 0.9% 100 ML IVPB SCH ×3 (03:00→15:16)
[2019-12-14] MEDS: Morphine 4 MG/ML VIAL SLOW IVP PRN ×4 (03:00→23:56)
[2019-12-14] MEDS: Lactated Ringer's 1,000 ML IV SCH ×2 (03:05→11:18)
[2019-12-14] MEDS: Famotidine/PF 20 mg/2ml Vial SLOW IVP SCH (08:17)
[2019-12-14] MEDS ORDERED: FLU VACC QS2020-21(6MOS UP)/PF 60 MCG/0.5 ML SYRINGE IM ONE (09:00)
[2019-12-14] MEDS ORDERED: Dexamethasone 20 MG/5 ML VIAL ONE (09:08)
[2019-12-14] MEDS ORDERED: Ondansetron PF 4 MG/2 ML Vial ONE ×2 (09:08→12:22)
[2019-12-14] MEDS ORDERED: Ketorolac Tromethamine 30 MG/ML VIAL ONE (09:08)
[2019-12-14] MEDS ORDERED: Glycopyrrolate 0.2 MG/ML 5 ML SYRINGE ONE (09:08)
[2019-12-14] MEDS ORDERED: Rocuronium Bromide 10 MG/ML (10ML VIAL) ONE (09:08)
[2019-12-14] MEDS ORDERED: PROPOFOL 200 MG/20 ML VIAL ONE (09:08)
[2019-12-14] MEDS ORDERED: Metoclopramide HCl 10 MG/2 ML VIAL ONE ×2 (09:08→12:22)
[2019-12-14] MEDS ORDERED: Lidocaine 1% PF 5 ML VIAL ONE (09:08)
[2019-12-14] MEDS ORDERED: Ketorolac Tromethamine 30 MG/ML VIAL IVP SCH (11:15)
[2019-12-14 11:41] LABS: SARS-CoV-2 MS2 Positive; SARS-CoV-2 N Gene Negative; SARS-CoV-2 S Gene Negative; SARS-CoV-2 by NAA Not Detected (NotDetected); SARS-CoV-2 orf1ab Negative
[2019-12-14] MEDS ORDERED: Bupivacaine HCl 0.5%/Epinephrine 1:200,000/PF 30 ml Vial ONE (12:00)
[2019-12-14] MEDS ORDERED: Bupivacaine/Epinephrine 0.25% 30 ML VIAL ONE (12:13)
[2019-12-14] MEDS ORDERED: Fentanyl 250 MCG/5 ML VIAL ONE (12:18)
[2019-12-14] MEDS ORDERED: Famotidine 20 MG TAB ONE (12:21)
[2019-12-14] MEDS ORDERED: Famotidine/PF 20 mg/2ml Vial ONE (12:21)
[2019-12-14] MEDS ORDERED: Scopolamine 1.5 mg/72 hour Patch ONE (12:21)
--- NOTE | 2019-12-14 12:35 | PDOC.BPN ---
- Brief Progress Note Encounter Date: 12/14/19 Encounter Time: 12:35 No changes in the patient's medical condition. She states her pain has been well controlled. Afebrile with normal vital signs Lungs-grossly clear bilaterally Heart-regular regular Aowpbdtema-ylvwpgyumvjhl-Djeoa test is negative, we will be proceeding to the operating room for laparoscopic cholecystectomy with the anticipation of discharge today.
[2019-12-14] MEDS ORDERED: Sodium Chloride 0.9% 100 ML ONE (13:02)
[2019-12-14] MEDS ORDERED: Piperacillin/Tazobactam 3.375 GM VIAL ONE (13:02)
[2019-12-14] MEDS ORDERED: Ketorolac Tromethamine 30 MG/ML VIAL IVP PRN ×2 (14:22→16:04)
[2019-12-14] MEDS ORDERED: Promethazine HCl 25 MG/ML VIAL IM PRN (14:22)
[2019-12-14] MEDS ORDERED: PACU-Morphine 4MG/ML VIAL SLOW IVP PRN (14:22)
[2019-12-14] MEDS ORDERED: HYDROmorphone 2 MG/ML VIAL SLOW IVP PRN (14:22)
[2019-12-14] MEDS ORDERED: Ondansetron HCl/PF 4 MG/2 ML Vial IVP PRN (14:22)
[2019-12-14] MEDS ORDERED: Morphine Sulfate 2 MG/ML SYRINGE SLOW IVP PRN (14:22)
[2019-12-14] MEDS ORDERED: Promethazine HCl 25 MG/ML VIAL SLOW IVP PRN (14:22)
[2019-12-14] MEDS ORDERED: Promethazine HCl 25 MG/ML VIAL ONE (14:38)
[2019-12-14] MEDS ORDERED: Fentanyl 100 MCG/2 ML VIAL ONE ×2 (14:41→14:58)
--- NOTE | 2019-12-14 15:45 | PDOC.OP ---
Operative Note - Operative Note Operative Note: Date of operation-14 December 2019 Preoperative diagnosis-cholecystitis Postoperative diagnosis-cholecystitis Operation-[laparoscopic cholecystectomy] Specimen-[gallbladder] EBL-[minimal] Complications-[none] Sponge and needle count were correct x2 Indication for procedure-the patient is a 34-year-old female who presents for laparoscopic cholecystectomy secondary to gallstones and cholecystitis. Conduct of the operation-after written preoperative informed consent, the patient was taken to the operating room, placed in the supine position and intubated. The abdomen was prepared and draped in sterile fashion. A timeout was performed. An incision was made in the right subcostal margin and a 5 mm trocar direct optical entry technique was used to enter the abdomen. Pneumoperitoneum was established. The underlying viscera was inspected and there was no damage noted. A 10 mm was placed at the umbilicus and 2 additional 5 mm were placed under the right costal margins at the usual locations under direct visualization. The fundus of the gallbladder was grasped and retracted over the dome of the liver. The gallbladder appeared tense and firm. The omentum was attached to the undersurface of the gallbladder and this was taken down with hook electrocautery. The infundibulum was grasped and retracted laterally. Dissection was carried out in the triangle of Calot until the critical view of safety was obtained. Clips were placed across the cystic duct and it was divided. The artery was divided divided between clips, and the gallbladder was removed from the gallbladder bed fossa. Specimen was placed in an Endo Catch bag and removed via the umbilicus. The right upper quadrant was inspected and there was no bleeding or bile staining noted. The trocar was removed at the umbilicus and a 0 Vicryl suture on a suture passer was used to close the fascial defect. The incisions were irrigated and closed with Monocryl and surgical skin glue. The patient was extubated and taken the postanesthesia care area in good condition having tolerated the procedure well.
--- NOTE | 2019-12-14 15:50 | PDOC.BPN ---
- Brief Progress Note Encounter Date: 12/14/19 Encounter Time: 15:46 This will serve as a discharge summary for this patient since there is no discharge summary template within [facility] Admission diagnosis: Acute cholecystitis Discharge diagnosis: Same Initial presentation and findings: Patient is a 34-year-old female who presented to the emergency room with a several day history of abdominal pain. Work-up in the emergency room was consistent with early acute cholecystitis. Clinical course: After evaluation, she was transferred to the [facility]. Once her Covid test returned negative, she was taken to the operating room and underwent a laparoscopic cholecystectomy. She recovered and was discharged home Procedures performed: Laparoscopic cholecystectomy-14 December 2019 Consults: [None] Discharge condition: [Good] Discharge medication: [[place] 5/325 mg-take 1 tablet by mouth every 6 hours as needed for pain] Activity: [No lifting anything over 25 pounds for the next 2 weeks. You may walk up stairs and outside. You may shower. Your incisions have glue over them. The glue will fall off in 1-2 weeks. You do not need to place anything over your incisions such as Neosporin or other antimicrobial ointments/creams.] Diet: [As tolerated] Follow-up: [Follow-up with Dr. Ballesteros in approximately 2 weeks. Please call the office at . Ask ask for my nurse Melanie.] Date of admission: 13 December 2019 Date of discharge: 15 December 2019
[2019-12-14] MEDS ORDERED: HYDROcodone/Acetaminophen 5/325 mg Tablet PO PRN (16:04)
[2019-12-14] MEDS: NIFEdipine XL 60 MG TAB PO SCH (17:37)
[2019-12-14] MEDS: HYDROcodone/Acetaminophen 5/325 mg Tablet PO PRN (21:15)
[2019-12-15] MEDS: HYDROcodone/Acetaminophen 5/325 mg Tablet PO PRN ×3 (01:30→10:51)
[2019-12-15] MEDS: Morphine 4 MG/ML VIAL SLOW IVP PRN (04:05)
[2019-12-15 07:48] VITALS: BP 142/97; TEMP 98.3
--- NOTE | 2019-12-15 07:48 | PDOC.GSPN ---
Surgery Progress Note: Subj - Subjective Narrative: Patient is tolerating a regular diet. Her postoperative pain is being controlled. Her preoperative pain is gone. She has been up and ambulating within the room. Surgery Progress Note: Obj - Vital signs Vital signs: Vital Signs - Most Recent Temp Pulse Resp BP Pulse Ox 98.1 F 87 18 117/79 96 12/15/19 04:05 12/15/19 04:05 12/15/19 04:05 12/15/19 04:05 12/15/19 04:05 - Physical Exam Additional exam: General-[no acute distress, well-nourished] Head-[normocephalic, atraumatic] HEENT- [EOMI], [PERRLA] Neck-[trachea midline, supple] Lungs-[grossly clear to auscultation], [normal air movement] Heart-[regular regular], [no murmurs] Abdomen-[soft], [nondistended], appropriately tender, small ecchymosis around umbilicus, [normal active bowel sounds] Musculosketal-[full range of motion], [no gross deformity] Psychiatric-[good insight, good judgment] Skin-[good turgor, no jaundice] Neuro- [GCS 15], [CN II-XII intact] Surgery Progress Note: Results - Labs Result Diagrams: 12/13/19 12:50 12/13/19 12:50 Surgery Progress Note: A/P - Problem (1) Cholecystitis Current Visit: Yes Code(s): K81.9 - CHOLECYSTITIS, UNSPECIFIED Status: Acute Assessment and Plan: Patient did well overnight. She can be discharged this morning. Follow-up with me in 2 weeks. She has prescription for pain medicine.
[2019-12-15] MEDS: NIFEdipine XL 60 MG TAB PO SCH (08:31)
== END 2019-12-15 11:45 | disposition home or self-care (01) ==
LOC: ERS 12:34 → SURG B 13:59
PROVIDERS: ADMIT Surgery; ATTEND Surgery
PROC: 0FT44ZZ Resection of Gallbladder, Percutaneous Endoscopic Approach (ICD-10-PCS; principal; 2019-12-14)
DX: K80.10 Calculus of gallbladder with chronic cholecystitis without obstruction (principal); I10 Essential (primary) hypertension; F32.9 Major depressive disorder, single episode, unspecified; E66.9 Obesity, unspecified; Z68.39 Body mass index [BMI] 39.0-39.9, adult; Z79.899 Other long term (current) drug therapy; Z20.828 Contact with and (suspected) exposure to other viral communicable diseases
CPT/HCPCS: 36415; 71045; 76705; 80053; 81003; 81015; 81025; 82550; 83690; 84484; 85025; 87635; 88304; 93005; 96365; 96366; 96375; 96376; G0378; J1100; J1885; J2270; J2405; J2543; J2550; J2704; J2765; J3010; J3490; S0028; U0003

== ENCOUNTER 2019-12-15 23:38 | Emergency (ER) | payer OTHER ==
[2019-12-16] MEDS ORDERED: predniSONE 20 MG TAB ONE (00:03)
[2019-12-16] MEDS ORDERED: diphenhydrAMINE 25 MG CAP ONE (00:03)
[2019-12-16] MEDS ORDERED: Morphine 10 MG/ML VIAL ONE (00:09)
== END 2019-12-16 02:24 | disposition home or self-care (01) ==
LOC: ERS 23:38
DX: L27.0 Generalized skin eruption due to drugs and medicaments taken internally (principal); T40.605A Adverse effect of unspecified narcotics, initial encounter; I10 Essential (primary) hypertension; K21.9 Gastro-esophageal reflux disease without esophagitis; F41.9 Anxiety disorder, unspecified; Z79.899 Other long term (current) drug therapy; G89.18 Other acute postprocedural pain; R10.9 Unspecified abdominal pain; Z90.49 Acquired absence of other specified parts of digestive tract
CPT/HCPCS: 96372; 99282; J2270; J7512; Q0163

== ENCOUNTER 2020-05-01 15:51 | Emergency (ER) | payer OTHER ==
[2020-05-01] MEDS ORDERED: HYDROcodone/Acetaminophen 7.5/325 mg Tablet ONE (17:37)
== END 2020-05-01 18:04 | disposition home or self-care (01) ==
LOC: ERS 15:51
DX: K04.7 Periapical abscess without sinus (principal); I10 Essential (primary) hypertension; K21.9 Gastro-esophageal reflux disease without esophagitis; Z79.899 Other long term (current) drug therapy
CPT/HCPCS: 99283

== ENCOUNTER 2020-06-08 16:54 | Emergency (ER) | payer OTHER ==
[2020-06-08] MEDS ORDERED: Acetaminophen 500 MG TAB ONE (19:25)
[2020-06-08] MEDS ORDERED: traMADol HCl 50 MG TAB ONE (20:21)
== END 2020-06-08 20:25 | disposition home or self-care (01) ==
LOC: EEVIPCON 16:54 → ERS 16:54
DX: S00.212A Abrasion of left eyelid and periocular area, initial encounter (principal); K08.89 Other specified disorders of teeth and supporting structures; I10 Essential (primary) hypertension; K21.9 Gastro-esophageal reflux disease without esophagitis; Z79.899 Other long term (current) drug therapy; Y04.2XXA Assault by strike against or bumped into by another person, initial encounter
CPT/HCPCS: 99283

== ENCOUNTER 2024-12-09 11:47 | Emergency (ER) | payer OTHER ==
[2024-12-09 13:18] LABS: #Basophils 0.10 10x3/uL (0.0-0.2); #Eosinophils 0.23 10x3/uL (0.0-0.7); #Monocytes 0.75 10x3/uL (0.11-0.59); #Neutrophils 7.60 10x3/uL (1.40-6.50); %Basophils 0.9 % (0.0-1.0); %Eosinophils 2.0 % (0.0-10.0); %Lymphocytes 23.9 % (21.0-51.0); %Monocytes 6.5 % (0.0-10.0); %Neutrophils 66.4 % (42.0-75.0); Hematocrit 39.6 % (36.0-47.0); Hemoglobin 12.7 g/dL (12.0-16.0); Mean Corpuscular Hemoglobin 28.6 pg (27.0-31.0); Mean Corpuscular Volume 89.2 fL (78.0-98.0); Platelet Count 335 10x3/uL (130-400); Red Blood Cell (RBC) Count 4.44 mill/uL (4.20-5.40); White Blood Cell (WBC) Count 11.46 10x3/uL (4.8-10.8)
[2024-12-09 13:31] LABS: ALT (SGPT) 15 U/L (Less than 34); AST (SGOT) 21 U/L (11-34); Albumin 3.4 g/dL (3.1-4.5); Alkaline Phosphatase 64 U/L (40-110); Anion Gap 12 mmol/L (10-20); BUN (Urea Nitrogen) 6 mg/dL (7.0-18.7); Bilirubin, Total 0.3 mg/dL (0.3-1.2); Calc. Creatinine Clearance 0 mL/min (70-130); Calcium 8.6 mg/dL (7.8-10.44); Carbon Dioxide 23 mmol/L (22-29); Chloride 107 mmol/L (98-107); Globulin 3.4 g/dL (2.4-3.5); Glucose 87 mg/dL (70-105); Potassium 4.1 mmol/L (3.5-5.1); Sodium 138 mmol/L (136-145)
[2024-12-09] MEDS ORDERED: Orphenadrine Citrate 60 MG/2 ML VIAL ONE (13:55)
[2024-12-09] MEDS ORDERED: Ondansetron PF 4 MG/2 ML Vial ONE (13:55)
[2024-12-09] MEDS ORDERED: Ketorolac Tromethamine 30 MG (1 mL) VIAL ONE (13:55)
[2024-12-09 16:06] LABS: Bacteria/HPF None Seen HPF (None Seen); CAUTI Indications for Culture Dysuria,urgency,freq; Glucose, Urine (Dipstick) Normal (Negative); Leukocyte 25 Leu/uL (Negative); Protein, Urine (Dipstick) Negative (Neg-Trace); RBC/HPF 0-3 HPF (0-3); Specific Gravity, Urine 1.023 (1.002-1.036); WBC/HPF 0-3 HPF (0-3)
[2024-12-09 16:09] LABS: Urine Culture Reflex No No
== END 2024-12-09 17:07 | disposition home or self-care (01) ==
LOC: ERS 11:47
DX: M54.40 Lumbago with sciatica, unspecified side (principal); R19.7 Diarrhea, unspecified; R11.2 Nausea with vomiting, unspecified; I10 Essential (primary) hypertension
CPT/HCPCS: 80053; 81001; 85025; 96361; 96372; 96374; 96375; J1885; J2270; J2360; J2405; J2919

== ENCOUNTER 2025-01-20 06:51 | Emergency (ER) | payer OTHER ==
[2025-01-20 07:31] LABS: #Basophils 0.11 10x3/uL (0.0-0.2); #Eosinophils 0.13 10x3/uL (0.0-0.7); #Monocytes 0.66 10x3/uL (0.11-0.59); #Neutrophils 10.75 10x3/uL (1.40-6.50); %Basophils 0.8 % (0.0-1.0); %Eosinophils 0.9 % (0.0-10.0); %Lymphocytes 15.6 % (21.0-51.0); %Monocytes 4.8 % (0.0-10.0); %Neutrophils 77.6 % (42.0-75.0); Hematocrit 42.1 % (36.0-47.0); Hemoglobin 13.7 g/dL (12.0-16.0); Mean Corpuscular Hemoglobin 28.2 pg (27.0-31.0); Mean Corpuscular Volume 86.6 fL (78.0-98.0); Platelet Count 368 10x3/uL (130-400); Red Blood Cell (RBC) Count 4.86 mill/uL (4.20-5.40); White Blood Cell (WBC) Count 13.85 10x3/uL (4.8-10.8)
[2025-01-20 07:48] LABS: ALT (SGPT) 19 U/L (Less than 34); AST (SGOT) 17 U/L (11-34); Albumin 3.7 g/dL (3.1-4.5); Alkaline Phosphatase 75 U/L (40-110); Anion Gap 15 mmol/L (10-20); BUN (Urea Nitrogen) 12 mg/dL (7.0-18.7); Bilirubin, Total 0.5 mg/dL (0.3-1.2); Calc. Creatinine Clearance 0 mL/min (70-130); Calcium 8.9 mg/dL (7.8-10.44); Carbon Dioxide 24 mmol/L (22-29); Chloride 104 mmol/L (98-107); Globulin 3.4 g/dL (2.4-3.5); Glucose 122 mg/dL (70-105); Potassium 3.5 mmol/L (3.5-5.1); Sodium 139 mmol/L (136-145)
[2025-01-20 08:32] LABS: Pregnancy Test - Urine (BHCG) Negative (Negative); Pregu Control Background? CLEAR/WHITE (CLR/WHITE); Pregu Control Bar Appear? YES (CONTROL BAR)
[2025-01-20 08:34] LABS: Bacteria/HPF None Seen HPF (None Seen); CAUTI Indications for Culture Pelvic or flank pain; Glucose, Urine (Dipstick) Normal (Negative); Leukocyte Negative Leu/uL (Negative); Protein, Urine (Dipstick) 10 mg/dL (Neg-Trace); RBC/HPF 0-3 HPF (0-3); Specific Gravity, Urine 1.028 (1.002-1.036); WBC/HPF 0-3 HPF (0-3)
[2025-01-20 08:35] LABS: Urine Culture Reflex No No
[2025-01-20] MEDS ORDERED: Iopamidol-370 76% 500 ML MDV (1 ML CHARGE) ONE (13:25)
== END 2025-01-20 10:38 | disposition home or self-care (01) ==
LOC: ERS 06:51
DX: R55 Syncope and collapse (principal); J06.9 Acute upper respiratory infection, unspecified; E86.0 Dehydration; I10 Essential (primary) hypertension; F41.8 Other specified anxiety disorders; W19.XXXA Unspecified fall, initial encounter; Y99.0 Civilian activity done for income or pay; Z79.899 Other long term (current) drug therapy
CPT/HCPCS: 70450; 71275; 80053; 81001; 81025; 85025; 85379; 87428; 93005; 96361; 96374